=== PATIENT | female | born 1955 | race Asian ===

== ENCOUNTER → 2024-05-10 18:43 | Emergency (ER) | payer MEDICAID ==
[~2024-05-10] VITALS: Ht 167.6 cm; Wt 64.4 kg
[~2024-05-10 18:43] MED LIST: ACET500T58 PO; CEPH250C PO; CIPR-173 PO; LEVO750T40 PO
--- NOTE | 2024-05-10 20:20 | DVH ---
EXAMINATION: AP portable chest radiograph CLINICAL HISTORY: Chest pain COMPARISON: XY CHEST XRAY 1 VIEW on DOS: 07/22/23 FINDINGS: No dominant consolidation. The costophrenic angles appear clear. No sizable pleural effusion or pneu mothorax. The cardiomediastinal silhouette appears within normal limits given technique. IMPRESSION: No acute cardiopulmonary findings as visualized.
[2024-05-10 20:30] LABS: Hematocrit 36.7 % (36.0-46.0); Hemoglobin 12.1 g/dL (12.2-16.2); Mean Corpuscular Volume 96.9 fL (80.0-100.0); Platelet Count (auto) 139 10^3/uL (140-450); Red Blood Cells 3.79 10^6/uL (4.0-5.20); Red Cell Distribution Width 14.4 % (11.8-14.3); White Blood Cell 3.7 10^3/uL (4.4-10.8)
[2024-05-10 20:35] LABS: Basophils % (manual) 0 (0.0-2.0); Blast Cells 0; Metamyelocytes % 0; Myelocytes % 0; Promyelocytes % 0; Reactive Lymphocytes 0
[2024-05-10 20:40] LABS: Chloride 100 mmol/L (98-107); Potassium 4.1 mmol/L (3.5-5.1)
[2024-05-10 20:41] LABS: Anion Gap 8 (5-15); Calcium 9.1 mg/dL (8.7-10.4); Carbon Dioxide 28 mmol/L (20-31)
[2024-05-10 20:42] LABS: Sodium 136 mmol/L (136-145)
[2024-05-10 20:46] LABS: Blood Urea Nitrogen 17 mg/dL (9-23)
[2024-05-10 21:07] LABS: Glucose 192 mg/dL (74-106)
[2024-05-10 21:43] VITALS: PULSE 87; RESP 17; O2SAT 97
[2024-05-10] MEDS: ACETAMINOPHEN 325 MG TAB PO ONE (22:21)
[2024-05-10 22:22] LABS: Anisocytosis Slight; Band Neutrophils % (manual) 3; Eosinophils % (manual) 2 (0-7); Lymphocytes % (manual) 22 (10.0-50.0); Monocytes % (manual) 18 (0-12); Platelet Estimate Decreased
[2024-05-10 22:50] LABS: Urine Bacteria FEW /hpf (None Seen); Urine Blood TRACE /uL (Negative); Urine Clarity Clear (Clear); Urine Color Colorless (Yellow); Urine Protein, UAD Negative (Negative); Urine Squamous Epithelial Cell FEW /hpf (<5); Urine Urobilinogen Normal (Negative); Urine WBC 11 /HPF (0-5); Urine pH 5.5 (5.0-9.0)
[2024-05-10 23:06] LABS: COVID19 ANTIGEN SOFIA FIA NEGATIVE (NEGATIVE)
[2024-05-10 23:07] LABS: Rapid Influenza A Negative (Negative); Rapid Influenza B Negative (Negative)
[2024-05-10] MEDS: CEPHALEXIN 250 MG CAP PO ONE (23:16)
--- NOTE | 2024-05-10 23:17 | ED.PDOC ---
History of Present Illness HPI Comments Patient is a very pleasant 69-year-old Creole speaking only female who was brought in by her daughter today for evaluation of fever concerns. Patient is currently on chemotherapy for multiple myeloma and was advised by her oncologist to come to the ED for evaluation. Daughter states the fever came on last night and has continued through today. Daughter denies any vomiting. Patient mildly elevated temperature and mild tachycardia at arrival. Chief Complaint: Fever Time Seen by MD: 19:33 Reviewed Notes: Nurses Notes Information Source: Patient, Relative (Child) Mode of Arrival: Ambulatory Timing: Days Duration: Since onset Severity: Moderate Context: Recent: None History of: Chronic Illness Symptoms: Fever Associated Signs and Symptoms: Weakness Past Medical History PAST MEDICAL HISTORY: Denies Past Medical History (Other): Patient was currently receiving chemotherapy for multiple myeloma Surgical History: Unknown EMERGENCY ROOM CLERK History: Unknown Family History Family History: Unknown Social History Smoker: Non-Smoker Alcohol: Denies ETOH Use Drugs: Denies Drug Use Lives In: Home Constitutional: Fever, Weakness EENTM: No Symptoms Reported Respiratory: No Symptoms Reported Cardiovascular: No Symptoms Reported Gastrointestinal: No Symptoms Reported Genitourinary: No Symptoms Reported Neurological: No Symptoms Reported Musculoskeletal: No Symptoms Reported Integumentary: No Symptoms Reported Allergic/Immunocompromised: others Hematologic/Lymphatic: No Symptoms Reported Endocrine: No Symptoms Reported Psychiatric: No symptoms Reported All Other Systems: Reviewed and Negative Physical Exam General Appearance: Moderate Distress (Patient presents as a moderately ill 69-year-old female.), Normal HEENT: Normal ENT Inspection, Pharynx Normal, TMs Normal Neck: Full Range of Motion, Non-Tender, Normal, Normal Inspection Respiratory: Chest Non-Tender, Lungs Clear, No Accessory Muscle Use, No Respiratory Distress, Normal Breath Sounds Cardiovascular: No Edema, No JVD, No Murmur, No Gallop, Normal Peripheral Pulses, Regular Rate/Rhythm Breast Exam: Deferred Gastrointestinal: No Organomegaly, Non Tender, No Pulsatile Mass, Normal Bowel Sounds, Soft Genitalia: Deferred Pelvic: Deferred Rectal: Deferred Extremities: Normal capillary refill, Normal inspection, Normal range of motion, No pedal edema Neurologic: Alert, No Motor Deficits, Normal Affect, Normal Mood, No Sensory Deficits Cerebellar Function: Normal Reflexes: Normal Skin: Dry, Normal Color, Warm Lymphatic: No Adenopathy Was a procedure done? Was a procedure done?: No Fever Differential Dx Differential Diagnosis: Influenza, Other (COVID-19, UTI, sepsis, electrolyte abnormality, pneumonia) X-Ray, Labs, Meds, VS Vital Signs Date Time Temp Pulse Resp B/P (MAP) Pulse Ox O2 Delivery O2 Flow Rate FiO2 05/10/24 21:43 98.1 87 17 108/66 (80) 97 98.1 05/10/24 21:43 87 17 97 Room Air* 0 21 05/10/24 19:10 20 05/10/24 19:10 100.0 101 20 116/81 (93) 95 Lab Test 05/10/24 22:30 05/10/24 20:19 05/10/24 19:32 Range/Units Urine Color Colorless Yellow Urine Clarity Clear Clear Urine pH 5.5 5.0-9.0 Urine Specific [place] 1.010 1.001-1.035 Urine Protein Negative Negative Urine Ketones Negative Negative Urine Blood Trace H Negative /uL Urine Nitrite Negative Negative Urine Bilirubin Negative Negative Urine Urobilinogen Normal Negative mg/dL Urine Leukocyte Esterase 2+ Negative /uL Urine RBC <1 0 - 4 /hpf Urine Microscopic WBC 11 H 0-5 /HPF Urine Squamous Epithelial Cells Few <5 /hpf Urine Bacteria Few H None Seen /hpf Urine Glucose Normal Normal mg/dL White Blood Count 3.7 L 4.4-10.8 10^3/uL Red Blood Count 3.79 L 4.0-5.20 10^6/uL Hemoglobin 12.1 L 12.2-16.2 g/dL Hematocrit 36.7 36.0-46.0 % Mean Corpuscular Volume 96.9 80.0-100.0 fL Mean Corpuscular Hemoglobin 32.0 28.0-32.0 pg Mean Corpuscular Hemoglobin Concent 33.0 32.0-36.0 g/dL Red Cell Distribution Width 14.4 H 11.8-14.3 % Platelet Count 139 L 140-450 10^3/uL Mean Platelet Volume 7.4 6.9-10.8 fL Neutrophils (%) (Auto) 37.0-80.0 % Lymphocytes (%) (Auto) 10.0-50.0 % Monocytes (%) (Auto) 0.0-12.0 % Basophils (%) (Auto) 0.0-2.0 % Neutrophils # (Auto) 1.6-8.6 10 ^3/uL Lymphocytes # (Auto) 0.4-5.4 10 ^3/uL Monocytes # (Auto) 0-1.3 10 ^3/uL Differential Total Cells Counted 100.0 100 Neutrophils % (Manual) 55 37.0-80.0 Band Neutrophils % (Manual) 3 Lymphocytes % (Manual) 22 10.0-50.0 Monocytes % (Manual) 18 H 0-12 Eosinophils % (Manual) 2 0-7 Basophils % (Manual) 0 0.0-2.0 Metamyelocytes % (manual) 0 Myelocytes % (Manual) 0 Promyelocytes % (Manual) 0 Blast Cells % (Manual) 0 Reactive Lymphocytes 0 Platelet Estimate Decreased Anisocytosis (manual) Slight Sodium Level 136 136-145 mmol/L Potassium Level 4.1 3.5-5.1 mmol/L Chloride Level 100 98-107 mmol/L Carbon Dioxide Level 28 20-31 mmol/L Anion Gap 8 5-15 Blood Urea Nitrogen 17 9-23 mg/dL Creatinine 0.68 0.550-1.02 mg/dL Glomerular Filtration Rate Calc 94 >90 mL/min BUN/Creatinine Ratio 25.0 H 10.0-20.0 Serum Glucose 192 H 74-106 mg/dL Calcium Level 9.1 8.7-10.4 mg/dL Influenza Type A Antigen Negative Negative Influenza Type B Antigen Negative Negative SARS-CoV-2 Antigen (Rapid) Negative NEGATIVE X-Ray, Labs, Meds, VS Comment Serum studies were unremarkable for any systemic process. Patient does have a urinary tract infection. Imaging studies of the chest were unremarkable for any consolidation or intrapulmonary concerns. Patient was given her 1st dose of antibiotics prior to discharge. Advised patient utilize antibiotics as directed as well as supplemental medication as needed. Advised good hydration and healthy nutrition throughout. Patient should maintain all appointments with her oncologist for chemotherapy treatments. Time of 1ST Reevaluation: 23:15 Reevaluation 1ST: Improved Consultation: PCP, Other (Oncology) Patient Education/Counseling: Diagnosis, Treatment Family Education/Counseling: Diagnosis, Treatment Departure 1 Departure Time of Disposition: 23:15 Impression: Primary Impression: UTI (urinary tract infection) Disposition: HOME / SELF CARE / HOMELESS Condition: Stable Additional Instructions: Advise utilizing antibiotics as directed until completion as well as additional medication as needed. Patient should maintain all appointments with chemotherapy and Oncology. e-Prescriptions Acetaminophen (Acetaminophen) 500 Mg Tab 500 MG PO Q4HP PRN, #20 TAB Prov: TEO MAYS PAC 05/10/24 Cephalexin (KEFLEX CAPSULE) 250 Mg Cp 1 CAP PO QID for 7 Days, #28 CAP Prov: TEO MAYS PAC 05/10/24 Discharged With: Self, Relative Critical Care Note Critical Care Time?: No Stability Stability form required: No Heart Score Heart Score: Heart Score Response (Comments) Value History N/A 0 EKG N/A 0 Age N/A 0 Risk Factors N/A 0 Troponin N/A 0 Total 0 TEO MAYS PAC May 10, 2024 23:17
[2024-05-10] MEDS: CIPROFLOXACIN HCL 500 MG TAB PO ONE (23:34)
[2024-05-11] VITALS: BP 107/63; PULSE 82; RESP 21; TEMP 98.3; O2SAT 97
== END | disposition home or self-care (01) ==
LOC: ER 18:43
DX: N39.0 Urinary tract infection, site not specified (principal); C90.00 Multiple myeloma not having achieved remission; R07.9 Chest pain, unspecified; Z20.822 Contact with and (suspected) exposure to COVID-19
CPT/HCPCS: 36415; 71045; 80048; 81001; 85007; 85027; 87426; 87804